=== PATIENT | female | born 1970 | race Caucasian/White ===

== ENCOUNTER 2025-01-03 21:49 | Emergency (ER) | payer OTHER ==
[2025-01-03] MEDS ORDERED: Ondansetron PF 4 MG/2 ML Vial ONE (22:25)
[2025-01-03] MEDS ORDERED: Ketorolac Tromethamine 30 MG (1 mL) VIAL ONE (23:15)
== END 2025-01-03 23:20 | disposition home or self-care (01) ==
LOC: ERS 21:49
DX: S16.1XXA Strain of muscle, fascia and tendon at neck level, initial encounter (principal); S46.911A Strain of unspecified muscle, fascia and tendon at shoulder and upper arm level, right arm, initial encounter; V89.2XXA Person injured in unspecified motor-vehicle accident, traffic, initial encounter
CPT/HCPCS: 70450; 71045; 72125; 96374; 96375; G0390; J1885; J2405; J3010